=== PATIENT | male | born 1950 | race American Indian/Alaskan Native ===

== ENCOUNTER 2018-05-26 07:39 | Day surgery (SDC) | payer MEDICARE, OTHER ==
[2018-05-26] MEDS ORDERED: ISOPTO CARPINE ONE (07:58)
[2018-05-26] MEDS ORDERED: GENTAMICIN 0.3% OPHTH SOLN ONE (07:59)
[2018-05-26] MEDS ORDERED: BSS ONE (08:11)
[2018-05-26] MEDS ORDERED: NACL BACTERIOSTATIC INFILTRATI ONE (09:00)
--- NOTE | 2018-05-26 09:33 | Anesthesia Consultation ---
Anesthesia Consult and Med Hx Date of service: 05/26/18 - Airway Anesthetic Teeth Evaluation: Poor ROM Head & Neck: Adequate Mental/Hyoid Distance: Adequate Mallampati Class: Class II Intubation Access Assessment: Probably Good - Pulmonary Exam CTA: Yes (diminished) - Cardiac Exam Cardiac Exam: RRR - Pre-Operative Health Status ASA Pre-Surgery Classification: ASA4 Proposed Anesthetic Plan: MAC - Pre-Anesthesia Comment Pre-Anesthesia Comments: pulm cleared on chart - Pulmonary Hx Smoking: Yes (FOR 40 YEARS, QUIT 10 YEARS AGO) Hx Respiratory Symptoms: Yes SOB: Yes (limited activity ) COPD: Yes Home Oxygen Therapy: Yes (2L) - Cardiovascular System Hx Hypertension: Yes (20 YEARS)
--- NOTE | 2018-05-26 09:50 | Anesthesia Day of Surgery ---
Anesthesia Day of Surgery - Day of Surgery Patient Examined: Yes Patient H&P Reviewed: Yes Patient is NPO: Yes Pulmonary Clearance: Yes
[2018-05-26] MEDS: VIGAMOX OD SCH ×2 (10:15→10:30)
[2018-05-26] MEDS: CYCLOGYL OD SCH ×2 (10:15→10:29)
[2018-05-26] MEDS: MYDRIACYL OD SCH ×2 (10:15→10:29)
[2018-05-26] MEDS: AK-Dilate OD SCH ×2 (10:15→10:29)
== END 2018-05-26 07:40 | disposition home or self-care (01) ==
LOC: OR 07:39
PROVIDERS: ATTEND Ophthalmology
DX: H26.8 Other specified cataract (principal); J44.9 Chronic obstructive pulmonary disease, unspecified; I10 Essential (primary) hypertension; Z79.899 Other long term (current) drug therapy; Z99.81 Dependence on supplemental oxygen; Z87.891 Personal history of nicotine dependence; Z53.8 Procedure and treatment not carried out for other reasons